=== PATIENT | female | born 1975 | race Two or more races ===

== ENCOUNTER 2021-04-23 07:31 | Emergency (ER) | payer SELFPAY ==
[~2021-04-23] VITALS: Ht 165.1 cm; Wt 79.0 kg
--- NOTE | 2021-04-23 07:46 | PHYS DOC ---
Past Medical History Past Medical History: Cancer Past Medical History Uterine cancer Past Surgical History: Hysterectomy Smoking Status: Current Every Day Smoker Alcohol Use: None Drug Use: None General Adult EDM: Chief Complaint: ABDOMINAL PAIN HPI: HPI: Patient is a 45 year old female who presents with generalized abdominal pain for the past 2 days. She reports nausea and vomiting, which began last night/early this morning. She has not had a bowel movement in 3 or 4 days. She is passing small amounts of flatus. She denies urinary symptoms. She denies hematemesis. She denies fevers or chills. She has had a previous hysterectomy for treatment of uterine cancer. She denies prior history of bowel obstruction. No recurrence of cancer, per her report. No active chemotherapy. The pain is generalized, nonlocalized and has progressively worsened overnight. She took a dose of mag citrate last night, which did not relieve her constipation. Review of Systems: Review of Systems: Constitutional: Denies fever or chills. [] Respiratory: Denies cough or shortness of breath. [] Cardiovascular: Denies chest pain or edema. [] GI: Abdominal pain, nausea vomiting, constipation. No hematemesis. : Denies urinary symptoms. No vaginal bleeding. Musculoskeletal: Denies back pain or joint pain. [] Integument: Denies rash. [] Neurologic: Denies headache, focal weakness or sensory changes. [] Psychiatric: Denies depression or anxiety. [] Heart Score: C/O Chest Pain: No Risk Factors: Risk Factors: DM, Current or recent (<one month) smoker, HTN, HLP, family history of CAD, obesity. Risk Scores: Score 0 - 3: 2.5% MACE over next 6 weeks - Discharge Home Score 4 - 6: 20.3% MACE over next 6 weeks - Admit for Clinical Observation Score 7 - 10: 72.7% MACE over next 6 weeks - Early Invasive Strategies Allergies: Allergies: Allergies Coded Allergies Type Severity Reaction Last Updated Verified No Known Drug Allergies 04/23/21 No Physical Exam: PE: Constitutional: Well developed, well nourished, she appears to be uncomfortable, writhing on the ED gurney. She is nontoxic in appearance. HENT: Normocephalic, atraumatic, bilateral external ears normal, mucous membranes are moist. Eyes: Sclera are anicteric, no discharge. [] Neck: Normal range of motion, no tenderness, supple, trachea is midline Cardiovascular:Heart rate regular rhythm, +2 dorsalis pedis and radial pulses bilaterally. Lungs & Thorax: Bilateral breath sounds clear to auscultation [] Abdomen: Abdomen is obese, soft, mildly distended, hypoactive bowel sounds, diffuse/nonfocal tenderness to palpation with occasional mild voluntary guarding, no rebound tenderness. No obvious palpable pulsatile mass, no obvious organomegaly, no CVA tenderness. No flank or abdominal ecchymoses. Skin: Warm, dry, no erythema, no rash. No jaundice. Back: No tenderness, no CVA tenderness. [] Extremities: No tenderness, no cyanosis, no clubbing, ROM intact, no edema. [] Neurologic: Alert and oriented X 3, speech is clear and fluent, ambulatory with a steady gait, moves all extremities equally. Psychologic: She is anxious but she is cooperative and pleasant. Current Patient Data: Vital Signs: Vital Signs Date Time Temp Pulse Resp B/P (MAP) Pulse Ox O2 Delivery O2 Flow Rate FiO2 04/23/21 07:41 98.4 98 19 147/104 (118) 99 Room Air 98.4 EKG: EKG: [] Radiology/Procedures: Radiology/Procedures: IMAGING REPORT Signed PATIENT: MAURA BAUER ACCOUNT: [id number] : 1975 LOCATION: ER AGE: 45 SEX: F EXAM STATUS: REG ER ORD. PHYSICIAN: KELBY FELIZ DO REASON: abdominal pain PROCEDURE: CT ABD PELV W/ IV CONTRST ONLY CT ABDOMEN+PELVIS W History: Reason: abdominal pain / Spl. Instructions: omnio 300 75ml / History: Technique: CT examination of the abdomen and pelvis with contrast. Coronal and sagittal reconstructions were performed. Exposure: One or more of the following individualized dose reduction techniques were utilized for this examination: 1. Automated exposure control 2. Adjustment of the mA and/or kV according to patient size 3. Use of iterative reconstruction technique. Comparison: December 03, 2011 Findings: Lower chest: No consolidation or pleural effusion. Abdomen and pelvis: Hepatic steatosis. The spleen, pancreas and gallbladder are unremarkable. No biliary ductal dilatation. Patent portal and hepatic veins. Left adrenal nodules measure 1.6 x 1.7 cm and 1.5 x 1.5 cm, mildly increased compared to 2012. No hydronephrosis. No renal calculus. Normal appearance of the urinary bladder. Fluidlike stool throughout the colon. Mild distention of the colon. Decompressed sigmoid colon with wall thickening. There are regions of irregular asymmetric wall thickening within the sigmoid. Normal appendix. No evidence of small bowel obstruction. Small retroperitoneal lymph nodes. No ascites. Prior hysterectomy. Bones: No pathologic osseous lesions. Impression: 1. Sigmoid colonic wall thickening with proximal colonic mild dilatation filled with fluid like stool, may represent a component of nondistention and potential colitis. Recommend follow-up to exclude underlying mass. 2. Increased left adrenal nodules compared to 2012. Adrenal protocol CT or MRI can definitively evaluate. 3. Hepatic steatosis. Electronically signed by: Donte Farias DO (04/23/2021 9:37 AM) [id number] DICTATED and SIGNED BY: DONTE FARIAS DO DATE: 04/23/21 [id number] 0 Course & Med Decision Making: Course & Med Decision Making Pertinent Labs and Imaging studies reviewed. (See chart for details) The patient is given IV fluids. She is given IV morphine and Toradol and Zofran for pain and nausea, respectively. She is resting comfortably. She has a benign, nonsurgical exam. CT findings noted for possible colitis. I have discussed all of the findings, differential diagnosis and plan of care with the patient. She is tolerating oral fluids without difficulty. No vomiting here. She feels comfortable with the plan for discharge home. Strict return precautions are given. I recommend she contact her PCP for follow-up. Musa Disclaimer: Musa Disclaimer: This electronic medical record was generated, in whole or in part, using a voice recognition dictation system. Departure Departure Impression: Primary Impression: Generalized abdominal pain Additional Impression: Colitis Disposition: HOME / SELF CARE / HOMELESS Condition: STABLE Referrals: FIDEL CANADA MD (PCP) Patient Instructions: Abdominal Pain, Colitis Additional Instructions: Use the medications as needed and as directed. Please eat a bland diet. Return immediately for uncontrolled vomiting, dehydration, vomiting blood, fever 100.4 or higher, more severe or uncontrolled pain or any other concerns. Drink plenty of clear fluids. Please contact your primary care physician for follow- up. If your symptoms persist you may need to see a GI doctor and have a colonoscopy performed. Scripts Ciprofloxacin Hcl (CIPRO) 500 Mg Tablet 1 TAB PO BID for 7 Days, #14 TAB 0 Refills Prov: KELBY FELIZ DO 04/23/21 Hydrocodone Bit/Acetaminophen (HYDROCODONE-APAP 5-325 ) 1 Tab Tablet 1 TAB PO PRN Q6HRS PRN for PAIN, #15 TAB 0 Refills Prov: KELBY FELIZ DO 04/23/21 Metronidazole (METRONIDAZOLE) 500 Mg Tablet 1 TAB PO TID for 7 Days, #21 TAB 0 Refills Prov: KELBY FELIZ DO 04/23/21 Ondansetron Hcl (ZOFRAN) 4 Mg Tablet 4 MG PO PRN TID PRN for VOMITING, #20 EA nausea/vomiting Prov: KELBY FELIZ DO 04/23/21 KELBY FELIZ DO Apr 23, 2021 07:46
[2021-04-23] MEDS ORDERED: ONDANSETRON PF 4 MG/2 ML VIAL. IVP ONE (08:00)
[2021-04-23] MEDS ORDERED: IV NORMAL SALINE 1000ML BAG 1,000 ML IV ONE (08:00)
[2021-04-23] MEDS ORDERED: MORPHINE SULFATE 4 MG/ML INJ. IVP ONE (08:00)
[2021-04-23 08:05] LABS: BILIRUBIN,URINE NEGATIVE (NEG); CLARITY,URINE TURBID; COLOR,URINE YELLOW; NITRITE,URINE NEGATIVE (NEG); PH,URINE 8.5 (<5.0-8.0); PROTEIN,URINE 30 mg/dL (NEG-TRACE)
[2021-04-23 08:13] LABS: AMORPHOUS SEDIMENT,UR PRESENT /HPF; BACTERIA,URINE FEW /HPF (0-FEW); WBC,URINE OCC /HPF (0-4)
[2021-04-23 08:20] LABS: BASO % 0 % (0-3); EOS % 0 % (0-3); HEMOGLOBIN 15.1 g/dL (12.0-15.5); LYMPH % 10 % (24-48); MEAN CORPUSCULAR HEMOGLOBIN 33 pg (25-35); MEAN CORPUSCULAR HGB CONC 34 g/dL (31-37); MEAN CORPUSCULAR VOLUME 96 fL (79-100); MONO # 0.5 x10^3/uL (0.0-1.1); MONO % 5 % (0-9); NEUT # 8.6 x10^3/uL (1.8-7.7); NEUT % 85 % (31-73); PLATELET COUNT 327 x10^3/uL (140-400); RED BLOOD COUNT 4.61 x10^6/uL (3.50-5.40); RED CELL DISTRIBUTION WIDTH 13.5 % (11.5-14.5); WHITE BLOOD COUNT 10.1 x10^3/uL (4.0-11.0)
[2021-04-23 08:37] LABS: ALBUMIN/GLOBULIN RATIO 1.1 (1.0-1.7); CALCIUM 8.8 mg/dL (8.5-10.1); CREATININE 0.6 mg/dL (0.6-1.0); GFR 107.2; POTASSIUM 3.7 mmol/L (3.5-5.1); TOTAL BILIRUBIN 0.3 mg/dL (0.2-1.0); TOTAL PROTEIN 7.6 g/dL (6.4-8.2)
[2021-04-23] MEDS ORDERED: IOHEXOL 300 MG/ML 100ML VIAL. IV ONE (09:00)
[2021-04-23] MEDS ORDERED: CONTRAST GIVEN. MC PRN (09:00)
[2021-04-23 09:34] VITALS: BP 147/83
--- NOTE | 2021-04-23 09:39 | RAD ---
CT ABDOMEN+PELVIS W History: Reason: abdominal pain / Spl. Instructions: omnio 300 75ml / History: Technique: CT examination of the abdomen and pelvis with contrast. Coronal and sagittal reconstructio ns were performed. Exposure: One or more of the following individualized dose reduction techniques were utilized for thi s examination: 1. Automated exposure control 2. Adjustment of the mA and/or kV according to patient size 3. Use of iterative reconstruction technique. Comparison: December 03, 2011 Findings: Lower chest: No consolidation or pleural effusion. Abdomen and pelvis: Hepatic steatosis. The spleen, pancreas and gallbladder are unremarkable. No bili josefa ductal dilatation. Patent portal and hepatic veins. Left adrenal nodules measure 1.6 x 1.7 cm and 1.5 x 1.5 cm, mildly increased compared to 2012. No hydronephrosis. No renal calculus. Normal appearance of the urinary bladder. Fluidlike stool throughout the colon. Mild distention of the colon. Decompressed sigmoid colon with w all thickening. There are regions of irregular asymmetric wall thickening within the sigmoid. Normal appendix. No evidence of small bowel obstruction. Small retroperitoneal lymph nodes. No ascites. Prio r hysterectomy. Bones: No pathologic osseous lesions. Impression: 1. Sigmoid colonic wall thickening with proximal colonic mild dilatation filled with fluid like stoo l, may represent a component of nondistention and potential colitis. Recommend follow-up to exclude u nderlying mass. 2. Increased left adrenal nodules compared to 2012. Adrenal protocol CT or MRI can definitively eval uate. 3. Hepatic steatosis. Electronically signed by: Donte Farias DO (04/23/2021 9:37 AM) [id number]
[2021-04-23] MEDS ORDERED: KETOROLAC 15 MG/ML VIAL. IVP ONE (10:00)
[2021-04-23] MEDS ORDERED: HYDR-2761 PO (10:26)
[2021-04-23] MEDS ORDERED: METR-34 PO (10:26)
[2021-04-23] MEDS ORDERED: ONDA4TAB7 PO (10:26)
[2021-04-23] MEDS ORDERED: CIPR500T94 PO (10:26)
== END 2021-04-23 10:36 | disposition home or self-care (01) ==
LOC: ER 07:31
DX: K52.9 Noninfective gastroenteritis and colitis, unspecified (principal); R10.84 Generalized abdominal pain; F17.200 Nicotine dependence, unspecified, uncomplicated; Z90.710 Acquired absence of both cervix and uterus
CPT/HCPCS: 36415; 74177; 80053; 81001; 83690; 85025; 96361; 96374; 96375; 99285; J1885; J2270; J2405; J7030; Q9967